=== PATIENT | female | born 1955 | race Caucasian/White ===

== ENCOUNTER 2020-07-25 19:23 | Emergency (ER) | payer OTHER, MEDICAID ==
[~2020-07-25] VITALS: Ht 165.1 cm; Wt 97.5 kg
[2020-07-25 20:14] LABS: HEMATOCRIT 39.2 % (37.0-47.0); MEAN CELL VOLUME 92.7 fl (81.0-99.0); MEAN CORPUSCULAR HGB 29.1 pg (27.0-31.0); MEAN CORPUSCULAR HGB CONC 31.4 g/dl (33.0-37.0); MEAN PLATELET VOLUME 9.2 fl (9.6-12.3); PLATELET COUNT AUTOMATED 377 10*3/uL (130-400); RED BLOOD COUNT 4.23 10*6/uL (4.10-5.10); RED CELL DISTRI WIDTH 12.5 % (0-14.5); WHITE BLOOD COUNT 22.9 10*3/uL (4.8-10.8)
[2020-07-25 20:30] LABS: ALBUMIN 2.8 gm/dl (3.1-4.5); ALKALINE PHOSPHATASE 117 U/L (45-117); BUN 14 mg/dl (7-24); CHLORIDE 94 mmol/L (98-107); CREATININE 1.04 mg/dL (0.55-1.02); SGOT/AST 15 IU/L (3-35); SGPT/ALT 22 U/L (12-78); SODIUM 128 mmol/L (136-145); TOTAL PROTEIN 7.6 gm/dL (6.4-8.2)
[2020-07-25 20:31] LABS: PLATELET SUFFICIENCY NORMAL (NORMAL); POLYCHROMASIA SLIGHT; TOTAL CELLS COUNTED 100 #CELLS; VACUOLATION OF NEUTROPHILS SLIGHT
[2020-07-25 20:33] LABS: BURR CELLS FEW
== END 2020-07-25 22:30 | disposition short-term general hospital (02) ==
LOC: ED 19:23
PROVIDERS: Emergency Medicine
DX: A41.9 Sepsis, unspecified organism (principal); N76.4 Abscess of vulva; N76.2 Acute vulvitis; F17.200 Nicotine dependence, unspecified, uncomplicated

== ENCOUNTER → 2020-08-28 | Outpatient (CLI) | payer OTHER, MEDICAID | LOC: WOUNDCARE 01:00 | PROVIDERS: ATTEND Nurse Practitioner | DX: N76.0 Acute vaginitis (principal); L02.214 Cutaneous abscess of groin; B96.29 Other Escherichia coli [E. coli] as the cause of diseases classified elsewhere; J44.9 Chronic obstructive pulmonary disease, unspecified; I10 Essential (primary) hypertension; M19.90 Unspecified osteoarthritis, unspecified site; E78.5 Hyperlipidemia, unspecified; Z87.891 Personal history of nicotine dependence; Z98.49 Cataract extraction status, unspecified eye; Z90.710 Acquired absence of both cervix and uterus ==

== ENCOUNTER → 2020-09-02 | Outpatient (CLI) | payer OTHER, MEDICAID | LOC: WOUNDCARE 00:46 | PROVIDERS: ATTEND Nurse Practitioner | DX: N76.0 Acute vaginitis (principal); L02.214 Cutaneous abscess of groin; B96.29 Other Escherichia coli [E. coli] as the cause of diseases classified elsewhere; J44.9 Chronic obstructive pulmonary disease, unspecified; I10 Essential (primary) hypertension; M19.90 Unspecified osteoarthritis, unspecified site; E78.5 Hyperlipidemia, unspecified; Z87.891 Personal history of nicotine dependence; Z98.49 Cataract extraction status, unspecified eye; Z90.710 Acquired absence of both cervix and uterus ==

== ENCOUNTER → 2020-09-07 | Outpatient (CLI) | payer OTHER, MEDICAID | LOC: WOUNDCARE 00:33 | PROVIDERS: ATTEND Nurse Practitioner | DX: N76.0 Acute vaginitis (principal); L02.214 Cutaneous abscess of groin; B96.29 Other Escherichia coli [E. coli] as the cause of diseases classified elsewhere; J44.9 Chronic obstructive pulmonary disease, unspecified; I10 Essential (primary) hypertension; M19.90 Unspecified osteoarthritis, unspecified site; E78.5 Hyperlipidemia, unspecified; Z87.891 Personal history of nicotine dependence; Z98.49 Cataract extraction status, unspecified eye; Z90.710 Acquired absence of both cervix and uterus ==

== ENCOUNTER → 2020-09-14 | Outpatient (CLI) | payer OTHER, MEDICAID | LOC: WOUNDCARE 01:24 | PROVIDERS: ATTEND Nurse Practitioner | DX: N76.0 Acute vaginitis (principal); L02.214 Cutaneous abscess of groin; B96.29 Other Escherichia coli [E. coli] as the cause of diseases classified elsewhere; J44.9 Chronic obstructive pulmonary disease, unspecified; E11.9 Type 2 diabetes mellitus without complications; I10 Essential (primary) hypertension; M19.90 Unspecified osteoarthritis, unspecified site; E78.5 Hyperlipidemia, unspecified; Z87.891 Personal history of nicotine dependence; Z90.710 Acquired absence of both cervix and uterus; Z98.49 Cataract extraction status, unspecified eye ==

== ENCOUNTER → 2020-09-21 | Outpatient (CLI) | payer OTHER, MEDICAID | LOC: WOUNDCARE 01:28 | PROVIDERS: ATTEND Nurse Practitioner | DX: N76.0 Acute vaginitis (principal); L02.214 Cutaneous abscess of groin; B96.29 Other Escherichia coli [E. coli] as the cause of diseases classified elsewhere; B37.9 Candidiasis, unspecified; J44.9 Chronic obstructive pulmonary disease, unspecified; E11.9 Type 2 diabetes mellitus without complications; I10 Essential (primary) hypertension; M19.90 Unspecified osteoarthritis, unspecified site; E78.5 Hyperlipidemia, unspecified; Z87.891 Personal history of nicotine dependence; Z90.710 Acquired absence of both cervix and uterus; Z98.49 Cataract extraction status, unspecified eye ==

== ENCOUNTER → 2020-09-28 | Outpatient (CLI) | payer OTHER, MEDICAID | LOC: WOUNDCARE 01:58 | PROVIDERS: ATTEND Nurse Practitioner | DX: N76.0 Acute vaginitis (principal); L02.214 Cutaneous abscess of groin; B96.29 Other Escherichia coli [E. coli] as the cause of diseases classified elsewhere; B37.9 Candidiasis, unspecified; J44.9 Chronic obstructive pulmonary disease, unspecified; E11.9 Type 2 diabetes mellitus without complications; I10 Essential (primary) hypertension; E78.5 Hyperlipidemia, unspecified; M19.90 Unspecified osteoarthritis, unspecified site; Z87.891 Personal history of nicotine dependence; Z90.710 Acquired absence of both cervix and uterus; Z98.49 Cataract extraction status, unspecified eye ==

== ENCOUNTER 2025-01-02 11:48 | Inpatient (IN) | payer OTHER, MEDICAID ==
[~2025-01-02] VITALS: Ht 165.1 cm; Wt 84.9 kg
[2025-01-02 11:48] VITALS: BP 128/63
[~2025-01-02 11:48] MED LIST: ADMELOG100 UNIT/1 SQ; AMOX-CLAV 875-1 EACH PO; BREYNA 160-4.10.3 GM INH; COLACE100 MG PO; COZAAR50 M1 PO; FLUOXETINE HCL40 MG PO; FLUOXETINE40 MG PO; HYDROCODONE-AC1 EAC1 PO; K-TAB20 MEQ PO; LEVEMIR100 UNIT/1 SC; METFORMIN HCL1000 M1 PO; NATURE'S BLEND F1 MG PO; OXYBUTYNIN ER15 MG PO; REXULTI1 MG PO; SYMB160 INH; VENT7GM INH; VITAMIN D3125 MC1 PO; ZOCOR40 MG PO
[2025-01-02] MEDS ORDERED: SODIUM CHLORIDE 0.9% 1,000 ML IV ONE (11:55)
[2025-01-02 12:22] LABS: BASO # 0.1 10*3/uL (0.0-0.1); BASO % 0.8 % (0.0-1.0); EOS # 0.2 10*3/uL (0.0-0.4); EOS % 2.1 % (1.0-4.0); MEAN CELL VOLUME 88.9 fl (81.0-99.0); MEAN CORPUSCULAR HGB 27.6 pg (27.0-31.0); MEAN PLATELET VOLUME 8.8 fl (9.6-12.3); MONO # 0.7 10*3/uL (0.1-1.0); MONO % 6.5 % (3.0-9.0); NEUT # 6.9 10*3/uL (2.3-7.9); NEUT % 65.4 % (47.0-73.0); NUCLEATED RED BLOOD CELL 0.0 % (0.0-0.0); NUCLEATED RED BLOOD CELL 0.0 10*3/uL (0.0-0.0); PLATELET COUNT AUTOMATED 488 10*3/uL (130-400); RED CELL DISTRI WIDTH 15.1 % (0-14.5)
[2025-01-02 12:33] LABS: BILIRUBIN Negative (Negative); BLOOD Negative (Negative); CLARITY Clear (Clear); COLOR Yellow (Yellow); KETONE Negative (Negative); LEUKO ESTERASE 1+ (Negative); NITRITE Positive (Negative); PH 7.5 (4.5-8.0); SPECIFIC GRAVITY 1.010 (1.001-1.030); UROBILINOGEN 1.0 E.U./dl (0.0-1.0)
[2025-01-02 12:44] LABS: BUN 5 mg/dl (9-23)
[2025-01-02 12:58] LABS: WBC 21-30 wbc/hpf (0-5)
[2025-01-02 12:59] LABS: BACTERIA 4+; EPITHELIAL CELLS 21-30
[2025-01-02] MEDS ORDERED: POTASSIUM CHLORIDE 20 MEQ TAB PO ONE (13:40)
[2025-01-02] MEDS ORDERED: BISACODYL 10 MG SUPP R PRN (14:20)
[2025-01-02] MEDS ORDERED: Acetaminophen/Hydrocodone 5 MG/325 MG TABLET PO PRN (14:20)
[2025-01-02] MEDS ORDERED: BISACODYL 5 MG TAB PO PRN (14:20)
[2025-01-02] MEDS ORDERED: Ondansetron Hydrochloride 4 MG/2 ML VIAL IV PRN (14:20)
[2025-01-02] MEDS ORDERED: ACETAMINOPHEN 650 MG SUPP R PRN (14:20)
[2025-01-02] MEDS ORDERED: TEMAZEPAM 15 MG CAP PO PRN (14:20)
[2025-01-02] MEDS ORDERED: ACETAMINOPHEN 325 MG TAB PO PRN (14:20)
[2025-01-02 15:05] VITALS: BP 149/73
[2025-01-02 15:50] VITALS: BP 144/50
[2025-01-02] MEDS ORDERED: DEXTROSE 50% 25 GM/50 ML VIAL IV PRN (16:35)
[2025-01-02] MEDS ORDERED: BUDESONIDE 0.5 MG AMP NEB SCH (16:54)
[2025-01-02 19:47] VITALS: BP 156/58; BP 178/64
[2025-01-02] MEDS ORDERED: Insulin Glargine, Recombinan 1 UNIT/0.01 ML SC SCH (22:00)
[2025-01-02] MEDS ORDERED: INSULIN LISPRO 1 UNIT/0.01 ML SQ SCH (22:00)
[2025-01-03] VITALS: BP 117/63
[2025-01-03] MEDS ORDERED: Water, Sterile 10 ML VIAL ONE (03:25)
[2025-01-03] MEDS ORDERED: Water, Sterile 10 ML VIAL IV SCH (03:45)
[2025-01-03 06:36] LABS: BASO # 0.1 10*3/uL (0.0-0.1); BASO % 0.8 % (0.0-1.0); EOS # 0.2 10*3/uL (0.0-0.4); EOS % 2.1 % (1.0-4.0); MEAN CELL VOLUME 90.9 fl (81.0-99.0); MEAN CORPUSCULAR HGB 27.3 pg (27.0-31.0); MEAN PLATELET VOLUME 9.2 fl (9.6-12.3); MONO # 0.6 10*3/uL (0.1-1.0); MONO % 6.5 % (3.0-9.0); NEUT # 5.5 10*3/uL (2.3-7.9); NEUT % 58.3 % (47.0-73.0); NUCLEATED RED BLOOD CELL 0.0 % (0.0-0.0); NUCLEATED RED BLOOD CELL 0.0 10*3/uL (0.0-0.0); PLATELET COUNT AUTOMATED 478 10*3/uL (130-400); RED CELL DISTRI WIDTH 15.4 % (0-14.5)
[2025-01-03 06:58] LABS: BUN 8 mg/dl (9-23); SGPT/ALT 7 U/L (5-49)
[2025-01-03 08:00] VITALS: BP 155/50
[2025-01-03] MEDS ORDERED: GABAPENTIN 100 MG CAP PO SCH (10:00)
[2025-01-03] MEDS ORDERED: DOCUSATE SODIUM 100 MG CAP PO SCH (10:00)
[2025-01-03] MEDS ORDERED: BREXPIPRAZOLE 1 MG TABLET PO SCH (10:00)
[2025-01-03] MEDS ORDERED: Cholecalciferol 5,000 IU CAP (125 MCG) PO SCH (10:00)
[2025-01-03] MEDS ORDERED: FOLIC ACID 1 MG TAB PO SCH (10:00)
[2025-01-03] MEDS ORDERED: SIMVASTATIN 20 MG TAB PO SCH (10:00)
[2025-01-03] MEDS ORDERED: AQUAPHOR OINTMENT Base 50 GM TUBE T SCH (11:00)
[2025-01-03 12:00] VITALS: BP 127/55
[2025-01-03] MEDS ORDERED: MAGNESIUM SULFATE 50 ML IV ONE (15:55)
[2025-01-03 16:00] VITALS: BP 152/61
[2025-01-03 20:00] VITALS: BP 118/54
[2025-01-04] VITALS: BP 129/75
[2025-01-04 06:06] LABS: BASO # 0.1 10*3/uL (0.0-0.1); BASO % 0.8 % (0.0-1.0); EOS # 0.3 10*3/uL (0.0-0.4); EOS % 2.4 % (1.0-4.0); MEAN CELL VOLUME 90.7 fl (81.0-99.0); MEAN CORPUSCULAR HGB 28.2 pg (27.0-31.0); MEAN PLATELET VOLUME 9.4 fl (9.6-12.3); MONO # 0.6 10*3/uL (0.1-1.0); MONO % 5.9 % (3.0-9.0); NEUT # 6.5 10*3/uL (2.3-7.9); NEUT % 61.9 % (47.0-73.0); NUCLEATED RED BLOOD CELL 0.0 % (0.0-0.0); NUCLEATED RED BLOOD CELL 0.0 10*3/uL (0.0-0.0); PLATELET COUNT AUTOMATED 418 10*3/uL (130-400); RED CELL DISTRI WIDTH 15.5 % (0-14.5)
[2025-01-04 06:10] LABS: BUN 8 mg/dl (9-23)
[2025-01-04 06:11] LABS: SGPT/ALT < 7 U/L (5-49)
[2025-01-04 08:00] VITALS: BP 150/54
[2025-01-04 11:57] VITALS: BP 155/56
[2025-01-04] MEDS ORDERED: GABAPENTIN 100 MG CAP PO SCH (14:00)
[2025-01-04 16:00] VITALS: BP 162/54
[2025-01-04 20:00] VITALS: BP 140/66
[2025-01-04 23:52] VITALS: BP 152/53
[2025-01-05 08:00] VITALS: BP 149/66
[2025-01-05 11:49] VITALS: BP 137/61
[2025-01-05 16:00] VITALS: BP 132/52
[2025-01-05 20:00] VITALS: BP 123/66
[2025-01-06] VITALS: BP 150/50; BP 168/48
[2025-01-06 08:00] VITALS: BP 150/58
[2025-01-06 12:00] VITALS: BP 157/61
[2025-01-06] MEDS ORDERED: OMNICEF300 MG PO (14:53)
[2025-01-06] MEDS ORDERED: PANTOPRAZOLE SO40 MG PO (14:53)
[2025-01-06] MEDS ORDERED: GABAPENTIN100 M2 PO (14:53)
[2025-01-06] MEDS ORDERED: HYDROCODONE-AC1 EAC1 PO (14:54)
[2025-01-06 16:00] VITALS: BP 158/53
== END 2025-01-06 18:04 | DRG 884 ==
LOC: ED 11:48 → 5E 13:38 → EDHOLD 13:38 → 5E 15:18
PROVIDERS: Emergency Medicine; ADMIT Family Medicine; ATTEND Family Medicine
DX: R54 Age-related physical debility (principal); E43 Unspecified severe protein-calorie malnutrition; N39.0 Urinary tract infection, site not specified; E44.0 Moderate protein-calorie malnutrition; R26.2 Difficulty in walking, not elsewhere classified; E87.6 Hypokalemia; D75.839 Thrombocytosis, unspecified; I10 Essential (primary) hypertension; J44.9 Chronic obstructive pulmonary disease, unspecified; E11.65 Type 2 diabetes mellitus with hyperglycemia; F32.A Depression, unspecified; E55.9 Vitamin D deficiency, unspecified; E78.5 Hyperlipidemia, unspecified; F17.210 Nicotine dependence, cigarettes, uncomplicated; B96.20 Unspecified Escherichia coli [E. coli] as the cause of diseases classified elsewhere; N32.81 Overactive bladder; Z90.710 Acquired absence of both cervix and uterus; Z79.899 Other long term (current) drug therapy; Z68.31 Body mass index [BMI] 31.0-31.9, adult

== ENCOUNTER 2025-02-18 11:18 | Emergency (ER) | payer OTHER, MEDICAID ==
[~2025-02-18] VITALS: Ht 165.1 cm; Wt 79.9 kg
[~2025-02-18 11:18] MED LIST changes: +GABAPENTIN100 M2 PO; +OMNICEF300 MG PO; +PANTOPRAZOLE SO40 MG PO
[2025-02-18 12:39] LABS: BASO # 0.1 10*3/uL (0.0-0.1); BASO % 0.6 % (0.0-1.0); EOS # 0.2 10*3/uL (0.0-0.4); EOS % 1.7 % (1.0-4.0); MEAN CELL VOLUME 90.2 fl (81.0-99.0); MEAN CORPUSCULAR HGB 27.8 pg (27.0-31.0); MEAN PLATELET VOLUME 9.6 fl (9.6-12.3); MONO # 0.9 10*3/uL (0.1-1.0); MONO % 7.1 % (3.0-9.0); NEUT # 9.5 10*3/uL (2.3-7.9); NEUT % 71.0 % (47.0-73.0); NUCLEATED RED BLOOD CELL 0.0 % (0.0-0.0); NUCLEATED RED BLOOD CELL 0.0 10*3/uL (0.0-0.0); PLATELET COUNT AUTOMATED 343 10*3/uL (130-400); RED CELL DISTRI WIDTH 15.6 % (0-14.5)
[2025-02-18 13:02] LABS: BUN 21 mg/dl (9-23)
[2025-02-18] MEDS ORDERED: Acetaminophen/Hydrocodone HP 10/325 PO ONE (14:00)
[2025-02-18] MEDS ORDERED: HEPARIN SODIUM 250 ML IV SCH (14:05)
[2025-02-18 14:58] LABS: ACT PARTIAL THROMBO TIME 28.6 SECONDS (20.0-32.1)
[2025-02-18 15:27] LABS: BILIRUBIN Negative (Negative); BLOOD Negative (Negative); CLARITY Cloudy (Clear); COLOR Yellow (Yellow); KETONE 1+ (Negative); LEUKO ESTERASE 3+ (Negative); NITRITE Positive (Negative); PH 5.5 (4.5-8.0); SPECIFIC GRAVITY 1.025 (1.001-1.030); UROBILINOGEN 1.0 E.U./dl (0.0-1.0)
[2025-02-18] MEDS ORDERED: fentaNYL CITRATE/PF 50 MCG/ML SYRINGE IV ONE (15:35)
[2025-02-18 15:46] LABS: BACTERIA 4+; RBC 0-2 rbc/hpf (0-2); WBC TNTC wbc/hpf (0-5)
== END 2025-02-18 15:45 | disposition short-term general hospital (02) ==
LOC: ED 11:18
PROVIDERS: Nurse Practitioner Family
DX: I82.411 Acute embolism and thrombosis of right femoral vein (principal); I82.431 Acute embolism and thrombosis of right popliteal vein; I82.441 Acute embolism and thrombosis of right tibial vein; I82.491 Acute embolism and thrombosis of other specified deep vein of right lower extremity; E11.9 Type 2 diabetes mellitus without complications; R09.89 Other specified symptoms and signs involving the circulatory and respiratory systems; F17.200 Nicotine dependence, unspecified, uncomplicated; Z79.899 Other long term (current) drug therapy; Z79.84 Long term (current) use of oral hypoglycemic drugs; Z79.4 Long term (current) use of insulin; Z90.710 Acquired absence of both cervix and uterus; Z98.890 Other specified postprocedural states